=== PATIENT | male | born 1960 | race Caucasian/White ===

== ENCOUNTER → 2020-05-04 | Day surgery (SDC) | payer OTHER ==
[~2020-05-04] MED LIST: ATORVASTATIN CA10 MG PO; FENTANYL CITRATE/PF 100MCG/2 ML INJ ONE; LIDOCAINE HCL 2% LOCAL INJ 5 ML SDV VIAL INJ ONE; LISINOPRIL10 MG PO; MIDAZOLAM HCL 2 MG/2 ML VIAL ONE; PROPOFOL IV EMULSION 10 MG/ML 20 ML VIAL ONE
[2020-05-04 12:35] VITALS: BP 108/60
== END | disposition home or self-care (01) ==
LOC: OR 09:10
PROVIDERS: ATTEND Internal Medicine
DX: K57.30 Diverticulosis of large intestine without perforation or abscess without bleeding (principal); K62.1 Rectal polyp; K64.0 First degree hemorrhoids; I10 Essential (primary) hypertension; Z01.810 Encounter for preprocedural cardiovascular examination; Z01.812 Encounter for preprocedural laboratory examination; Z11.59 Encounter for screening for other viral diseases
CPT/HCPCS: 45380; 87635; 93005; J2001; J2250; J2704; J3010